=== PATIENT | female | born 1985 | race Caucasian/White ===

== ENCOUNTER 2016-07-03 08:31 | Emergency (ER) | payer BC, OTHER ==
--- NOTE | 2016-07-03 09:20 | EDDOCDS ---
Physician Documentation [facility] Name: Estefany Dobbins Age: 30 yrs Sex: Female : 1985 Arrival Date: 07/03/2016 Time: 08:31 Bed I2 / M2 Private MD: Disposition: 07/03/16 09:00 Discharged to Home/Self Care. Impression: Hidradenitis suppurativa - acute abscess right axilla. - Condition is Stable. - Discharge Instructions: Abscess, Hidradenitis Suppurativa, Heat Therapy. - Prescriptions for Keflex 500 mg Oral Capsule - take 1 capsule by ORAL route every 6 hours for 10 days; 40 capsule. - Medication Reconciliation, Local Pharmacy Hours form. - Follow up: Emergency Department; When: As needed; Reason: Fever > 102F, Worsening of conditions. Follow up: [facility]; When: 1 - 2 days; Reason: Recheck today's complaints. - Problem is an acute exacerbation. - Symptoms have improved. Historical: - Allergies: No known drug Allergies; - Home Meds: 1. metformin 500 mg Oral tab 1 tab 2 times per day (Last dose: 07/02/2016) 2. Vitamin Oral tab 1 tab once daily (Last dose: 07/02/2016) - PMHx: Polycystic Ovary Disease; - PSHx: pilonidal cyst removal; - Social history: Smoking status: Patient states was never smoker of tobacco. No barriers to communication noted, The patient speaks fluent Sami. - Family history: Not pertinent. - : The pt / caregiver states he / she is not on anticoagulants. Home medication list is obtained from the patient. - Exposure Risk Screening:: None identified. 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 6 in. (167.64 cm) (R); Pain 2/10; 09:13 BP 124 / 67; Pulse 102; Resp 18; Temp 97.1; Pulse Ox 99% ; Pain 2/10; jam1 08:35 Body Mass Index 29.05 (81.65 kg, 167.64 cm) [facility] MDM: 09:00 Wound Culture & GS - All Other Sources Ordered. EDMS 09:07 Dressing ordered. ar2 09:16 Financial registration complete. mm15 09:17 [facility] Payment Agreement was scanned into [employer] and attached to record. mm15 Signatures: Dispatcher [employer] EDAR Beatrice Howard RN RN Jazmin Madera RN RN dls Robertshaw, Aaron, KRISTYN PABernadine ar2 Odalys Jerez mm15 The chart was reviewed and I authenticate all verbal orders and agree with the evaluation and treatment provided.Attachments: 09:17 [facility] Payment Agreement mm15 MTDD
--- NOTE | 2016-07-03 09:21 | EDDOCDS ---
Nurse's Notes [facility] Name: Estefany Dobbins Age: 30 yrs Sex: Female : 1985 Arrival Date: 07/03/2016 Time: 08:31 Bed I2 / M2 Private MD: Diagnosis: Hidradenitis suppurativa-acute abscess right axilla Presentation: 07/03 08:38 Presenting complaint: Patient states: 6 weeks abscess rt axilla x 3 [facility] days,oozing since yesterday. Adult Sepsis Screening: The patient does not have new or worsening altered mentation. Patient's respiratory rate is less than 22. Systolic blood pressure is greater than 100. Patient has a qSOFA score of 0- Negative Sepsis Screen. Suicide/Homicide risk assessment- the patient denies having any suicidal and/or homicidal ideations and does not present with any other emotional, behavioral or mental health complaints. Status: Patient is not a in service coordinator or dependent. Transition of care: patient was not received from another setting of care. 08:38 Acuity: VENUS Level 3 [facility] 08:38 Method Of Arrival: Walkin/Carried/Asstd [facility] Triage Assessment: 08:41 General: Appears comfortable, well nourished, well groomed, Behavior is appropriate for [facility] age. Pain: Location: right axilla Pain currently is 2 out of 10 on a pain scale. Pt Declines HIV testing. Neurological: Level of Consciousness is awake, alert, Oriented to person, place, time. Respiratory: Airway is patent Respiratory effort is even, unlabored. Derm: Skin is pink, warm & dry. Reports abscess right axilla. EDGERMAN: 08:35 2, Full Term 1, Premature 0, 0, Living 1, LMP 05/17/2016, [facility] Verified, EDC 02/21/2017, Gestational age from LMP: 6 weeks 5 days Historical: - Allergies: No known drug Allergies; - Home Meds: 1. metformin 500 mg Oral tab 1 tab 2 times per day (Last dose: 07/02/2016) 2. Vitamin Oral tab 1 tab once daily (Last dose: 07/02/2016) - PMHx: Polycystic Ovary Disease; - PSHx: pilonidal cyst removal; - Social history: Smoking status: Patient states was never smoker of tobacco. No barriers to communication noted, The patient speaks fluent Chinese. - Family history: Not pertinent. - : The pt / caregiver states he / she is not on anticoagulants. Home medication list is obtained from the patient. - Exposure Risk Screening:: None identified. Screenin:49 Screening information is obtained from the patient. Primary language is Chinese. Fall jam1 risk: No risks identified. Assistance ADL's: requires no assistance with activities of daily living. Abuse/DV Screen: The patient / caregiver reports he/she is: not in a situation that causes fear, pain or injury. Nutritional screening: No deficits noted. Exposure Risk Screening: None identified. Advance Directives: Currently, there is no health care proxy. There is no active DNR order. There is no living will. There is no Power of Lens Blank Gauger. Advance directive information has not previously been placed in an [facility] medical record. Further advance directive information is declined. home support is adequate. Assessment: 09:16 General: Appears in no apparent distress, well developed, well nourished, well groomed, dls Behavior is cooperative. Awake, alert, oriented. Skin warm and dry. Moves all extremities. Bilateral breath sounds clear. Respirations unlabored. No apparent distress. The patient / caregiver is instructed regarding the plan of care and ED course. Red draining abscess right axilla.. Physical assessment to be completed by TACOS/BASSAM. Vital Signs: 08:35 BP 136 / 84; Pulse 104; Resp 18; Temp 96.7(O); Pulse Ox 100% on R/A; Weight 81.65 kg [facility] (R); Height 5 ft. 6 in. (167.64 cm) (R); Pain 2/10; 09:13 BP 124 / 67; Pulse 102; Resp 18; Temp 97.1; Pulse Ox 99% ; Pain 2/10; jam1 08:35 Body Mass Index 29.05 (81.65 kg, 167.64 cm) [facility] Vitals: 08:35 Log In Time: July 03, 2016 at 08:30. [facility] ED Course: 08:33 Patient visited by Odalys Jerez. mm15 08:33 Patient moved to Waiting mm15 08:39 Triage Initiated [facility] 08:43 Patient moved to / M2 [facility] 08:48 Mukesh Krishnamurthy PA-C is PHCP. ar2 08:48 Casper Jackson MD is Attending Physician. ar2 08:48 Patient visited by Mukesh Krishnamurthy PA-C. ar2 08:49 Pt greeted and oriented to ED. Patient advised of names of staff involved in care, jam1 location of call jurado, wait times and NPO status. Patient has correct armband on for positive identification. Bed in low position. Call light in reach. Side rails up X 1. Door closed. 08:59 [facility] is Referral Physician. ar2 09:17 [facility] Payment Agreement was scanned into [employer] and attached to record. mm15 09:18 No IV's were initiated during this patient's visit. No procedures done that require dls assistance. Order Results: There are currently no results for this order. Outcome: 09:00 Discharge ordered by Provider. ar2 09:17 The following High Risk Discharge criteria are identified: None. Discharged to home dls ambulatory. Condition: stable. Discharge instructions given to patient, Instructed on discharge instructions, follow up and referral plans. medication usage, Demonstrated understanding of instructions, medications, Pt was receptive of discharge instructions/ teaching. No special radiology studies were completed. 09:18 Discharge Assessment: Patient awake, alert and oriented x 3. No cognitive and/or dls functional deficits noted. Patient verbalized understanding of disposition instructions. patient administered narcotics - no. Property sent home with patient. 09:20 Patient left the ED. dls Signatures: Beatrice Howard, RN RN Jazmin Weaver RN RN dls Murphy, Jane, PARTY PLAN DEMONSTRATOR PARTY PLAN DEMONSTRATOR jam1 Mukesh Krishnamurthy PA-C PA-C ar2 Odalys Jerez mm15 MTDD
--- NOTE | 2016-07-05 10:21 | EDDOCDS ---
Physician Documentation [facility] Name: Estefany Dobbins Age: 30 yrs Sex: Female : 1985 Arrival Date: 07/03/2016 Time: 08:31 Bed I2 / M2 Private MD: Disposition: 07/03/16 09:00 Discharged to Home/Self Care. Impression: Hidradenitis suppurativa - acute abscess right axilla. - Condition is Stable. - Discharge Instructions: Abscess, Hidradenitis Suppurativa, Heat Therapy. - Prescriptions for Keflex 500 mg Oral Capsule - take 1 capsule by ORAL route every 6 hours for 10 days; 40 capsule. - Medication Reconciliation, Local Pharmacy Hours form. - Follow up: Emergency Department; When: As needed; Reason: Fever > 102F, Worsening of conditions. Follow up: [facility]; When: 1 - 2 days; Reason: Recheck today's complaints. - Problem is an acute exacerbation. - Symptoms have improved. Historical: - Allergies: No known drug Allergies; - Home Meds: 1. metformin 500 mg Oral tab 1 tab 2 times per day (Last dose: 07/02/2016) 2. Vitamin Oral tab 1 tab once daily (Last dose: 07/02/2016) - PMHx: Polycystic Ovary Disease; - PSHx: pilonidal cyst removal; - Social history: Smoking status: Patient states was never smoker of tobacco. No barriers to communication noted, The patient speaks fluent Yoruba. - Family history: Not pertinent. - : The pt / caregiver states he / she is not on anticoagulants. Home medication list is obtained from the patient. - Exposure Risk Screening:: None identified. 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 6 in. (167.64 cm) (R); Pain 2/10; 09:13 BP 124 / 67; Pulse 102; Resp 18; Temp 97.1; Pulse Ox 99% ; Pain 2/10; jam1 08:35 Body Mass Index 29.05 (81.65 kg, 167.64 cm) [facility] MDM: 09:00 Wound Culture & GS - All Other Sources Ordered. EDMS 09:07 Dressing ordered. ar2 09:16 Financial registration complete. mm15 09:17 [facility] Payment Agreement was scanned into [email or web address] and attached to record. mm15 Signatures: Dispatcher [employer] EDNM Beatrice Howard RN RN [facility] Jazmin Valencia RN RN dls Robertshaw, Aaron, KRISTYN PABernadine ar2 Odalys Jerez mm15 The chart was reviewed and I authenticate all verbal orders and agree with the evaluation and treatment provided.Attachments: 09:17 [facility] Payment Agreement mm15 Chart Complete MTDD
--- NOTE | 2016-07-05 10:21 | EDDOCDS ---
Nurse's Notes [facility] Name: Estefany Dobbins Age: 30 yrs Sex: Female : 1985 Arrival Date: 07/03/2016 Time: 08:31 Bed I2 / M2 Private MD: Diagnosis: Hidradenitis suppurativa-acute abscess right axilla Presentation: 07/03 08:38 Presenting complaint: Patient states: 6 weeks abscess rt axilla x 3 [facility] days,oozing since yesterday. Adult Sepsis Screening: The patient does not have new or worsening altered mentation. Patient's respiratory rate is less than 22. Systolic blood pressure is greater than 100. Patient has a qSOFA score of 0- Negative Sepsis Screen. Suicide/Homicide risk assessment- the patient denies having any suicidal and/or homicidal ideations and does not present with any other emotional, behavioral or mental health complaints. Status: Patient is not a patient services specialist or dependent. Transition of care: patient was not received from another setting of care. 08:38 Acuity: VENUS Level 3 [facility] 08:38 Method Of Arrival: Walkin/Carried/Asstd [facility] Triage Assessment: 08:41 General: Appears comfortable, well nourished, well groomed, Behavior is appropriate for [facility] age. Pain: Location: right axilla Pain currently is 2 out of 10 on a pain scale. Pt Declines HIV testing. Neurological: Level of Consciousness is awake, alert, Oriented to person, place, time. Respiratory: Airway is patent Respiratory effort is even, unlabored. Derm: Skin is pink, warm & dry. Reports abscess right axilla. 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 metformin 500 mg Oral tab 1 tab 2 times per day (Last dose: 07/02/2016) 2. Vitamin Oral tab 1 tab once daily (Last dose: 07/02/2016) - PMHx: Polycystic Ovary Disease; - PSHx: pilonidal cyst removal; - Social history: Smoking status: Patient states was never smoker of tobacco. No barriers to communication noted, The patient speaks fluent Albanian. - Family history: Not pertinent. - : The pt / caregiver states he / she is not on anticoagulants. Home medication list is obtained from the patient. - Exposure Risk Screening:: None identified. Screenin:49 Screening information is obtained from the patient. Primary language is Albanian. Fall jam1 risk: No risks identified. Assistance ADL's: requires no assistance with activities of daily living. Abuse/DV Screen: The patient / caregiver reports he/she is: not in a situation that causes fear, pain or injury. Nutritional screening: No deficits noted. Exposure Risk Screening: None identified. Advance Directives: Currently, there is no health care proxy. There is no active DNR order. There is no living will. There is no Power of Reconnaissance Crewmember. Advance directive information has not previously been placed in an [facility] medical record. Further advance directive information is declined. home support is adequate. Assessment: 09:16 General: Appears in no apparent distress, well developed, well nourished, well groomed, dls Behavior is cooperative. Awake, alert, oriented. Skin warm and dry. Moves all extremities. Bilateral breath sounds clear. Respirations unlabored. No apparent distress. The patient / caregiver is instructed regarding the plan of care and ED course. Red draining abscess right axilla.. Physical assessment to be completed by TACOS/BASSAM. Vital Signs: 08:35 BP 136 / 84; Pulse 104; Resp 18; Temp 96.7(O); Pulse Ox 100% on R/A; Weight 81.65 kg [facility] (R); Height 5 ft. 6 in. (167.64 cm) (R); Pain 2/10; 09:13 BP 124 / 67; Pulse 102; Resp 18; Temp 97.1; Pulse Ox 99% ; Pain 2/10; jam1 08:35 Body Mass Index 29.05 (81.65 kg, 167.64 cm) [facility] Vitals: 08:35 Log In Time: July 03, 2016 at 08:30. [facility] ED Course: 08:33 Patient visited by Odalys Jerez. mm15 08:33 Patient moved to Waiting mm15 08:39 Triage Initiated [facility] 08:43 Patient moved to / M2 [facility] 08:48 Mukesh Krishnamurthy PA-C is PHCP. ar2 08:48 Casper Jackson MD is Attending Physician. ar2 08:48 Patient visited by Mukesh Krishnamurthy PA-C. ar2 08:49 Pt greeted and oriented to ED. Patient advised of names of staff involved in care, jam1 location of call jur[place], wait times and NPO status. Patient has correct armband on for positive identification. Bed in low position. Call light in reach. Side rails up X 1. Door closed. 08:59 [facility] is Referral Physician. ar2 09:17 [facility] Payment Agreement was scanned into [employer] and attached to record. mm15 09:18 No IV's were initiated during this patient's visit. No procedures done that require dls assistance. 09:29 Patient name changed from Estefany\S\\S\Dobbins\S\ to Estefany\S\ \S\Dobbins. EDMS Order Results: Lab Order: Wound Culture & GS - All Other Sources; SPEC'M 07/03/16 09:39 Test: GRAM STAIN; Value: GRAM STAIN RESULT; Status: F Test: GRAM STAIN; Value: FEW EPITHELIAL CELLS; Status: F Test: GRAM STAIN; Value: FEW RBCS; Status: F Test: GRAM STAIN; Value: NO ORGANISMS SEEN; Status: F Test: WOUND CULTURE; Value: <EXTERNAL COMMENT eCWMed> FULL REPORT IN LAB NOTES (eCW and Medent).; Status: F Test: WOUND CULTURE; Value: ORGANISM 1: STAPHYLOCOCCUS SP COAG NEG; Status: F Test: WOUND CULTURE; Value: STAPHYLOCOCCUS SP COAG NEG; Status: F Test: WOUND CULTURE; Value: QUANTITY OF GROWTH FEW; Status: F Test: WOUND CULTURE; Value: GRAM POS SENSI - VITEK 67; Status: F Test: WOUND CULTURE; Value: Method: VIT2; Status: F Test: WOUND CULTURE; Value: TETRACYCLINE >=16 R; Status: F Test: WOUND CULTURE; Value: PENICILLIN G <=0.03 R; Status: F Test: WOUND CULTURE; Value: TRIMETHOPRIM/SULFAMETHOXAZOLE <=10 S; Status: F Test: WOUND CULTURE; Value: ERYTHROMYCIN >=8 R; Status: F Test: WOUND CULTURE; Value: GENTAMICIN <=0.5 S; Status: F Test: WOUND CULTURE; Value: CLINDAMYCIN <=0.25 S; Status: F Test: WOUND CULTURE; Value: OXACILLIN <=0.25 S; Status: F Test: WOUND CULTURE; Value: VANCOMYCIN 1 S; Status: F Test: WOUND CULTURE; Value: LINEZOLID (ZYVOX) 1 S; Status: F Outcome: 09:00 Discharge ordered by Provider. ar2 09:17 The following High Risk Discharge criteria are identified: None. Discharged to home dls ambulatory. Condition: stable. Discharge instructions given to patient, Instructed on discharge instructions, follow up and referral plans. medication usage, Demonstrated understanding of instructions, medications, Pt was receptive of discharge instructions/ teaching. No special radiology studies were completed. 09:18 Discharge Assessment: Patient awake, alert and oriented x 3. No cognitive and/or dls functional deficits noted. Patient verbalized understanding of disposition instructions. patient administered narcotics - no. Property sent home with patient. 09:20 Patient left the ED. dls Signatures: Dispatcher [employer] EDMS Beatrice Howard RN RN kpj Scott, Debra, RN RN dls Murphy, Jane, BRAND MGR BRAND MGR jam1 Mukesh Krishnamurthy PA-C PA-C ar2 Odalys Jerez mm15 Chart Complete MTDManda
--- NOTE | 2016-07-05 10:21 | EDDOCDS ---
Physician Documentation [facility] Name: Estefany Dobbins Age: 30 yrs Sex: Female : 1985 Arrival Date: 07/03/2016 Time: 08:31 Bed I2 / M2 Private MD: Disposition: 07/03/16 09:00 Discharged to Home/Self Care. Impression: Hidradenitis suppurativa - acute abscess right axilla. - Condition is Stable. - Discharge Instructions: Abscess, Hidradenitis Suppurativa, Heat Therapy. - Prescriptions for Keflex 500 mg Oral Capsule - take 1 capsule by ORAL route every 6 hours for 10 days; 40 capsule. - Medication Reconciliation, Local Pharmacy Hours form. - Follow up: Emergency Department; When: As needed; Reason: Fever > 102F, Worsening of conditions. Follow up: [facility]; When: 1 - 2 days; Reason: Recheck today's complaints. - Problem is an acute exacerbation. - Symptoms have improved. Historical: - Allergies: No known drug Allergies; - Home Meds: 1. metformin 500 mg Oral tab 1 tab 2 times per day (Last dose: 07/02/2016) 2. Vitamin Oral tab 1 tab once daily (Last dose: 07/02/2016) - PMHx: Polycystic Ovary Disease; - PSHx: pilonidal cyst removal; - Social history: Smoking status: Patient states was never smoker of tobacco. No barriers to communication noted, The patient speaks fluent Hungarian. - Family history: Not pertinent. - : The pt / caregiver states he / she is not on anticoagulants. Home medication list is obtained from the patient. - Exposure Risk Screening:: None identified. 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 6 in. (167.64 cm) (R); Pain 2/10; 09:13 BP 124 / 67; Pulse 102; Resp 18; Temp 97.1; Pulse Ox 99% ; Pain 2/10; jam1 08:35 Body Mass Index 29.05 (81.65 kg, 167.64 cm) [facility] MDM: 09:00 Wound Culture & GS - All Other Sources Ordered. EDMS 09:07 Dressing ordered. ar2 09:16 Financial registration complete. mm15 09:17 [facility] Payment Agreement was scanned into [employer] and attached to record. mm15 Signatures: Dispatcher [employer] EDWY Beatrice Howard RN RN [facility] Jazmin Valencia RN RN dls Robertshaw, Aaron, KRISTYN PABernadine ar2 Odalys Jerez mm15 The chart was reviewed and I authenticate all verbal orders and agree with the evaluation and treatment provided.Attachments: 09:17 [facility] Payment Agreement mm15 Chart Complete MTDD
--- NOTE | 2016-07-06 10:19 | EDDOCDS ---
Nurse's Notes [facility] Name: Estefany Dobbins Age: 30 yrs Sex: Female : 1985 Arrival Date: 07/03/2016 Time: 08:31 Bed I2 / M2 Private MD: Diagnosis: Hidradenitis suppurativa-acute abscess right axilla Presentation: 07/03 08:38 Presenting complaint: Patient states: 6 weeks abscess rt axilla x 3 [facility] days,oozing since yesterday. Adult Sepsis Screening: The patient does not have new or worsening altered mentation. Patient's respiratory rate is less than 22. Systolic blood pressure is greater than 100. Patient has a qSOFA score of 0- Negative Sepsis Screen. Suicide/Homicide risk assessment- the patient denies having any suicidal and/or homicidal ideations and does not present with any other emotional, behavioral or mental health complaints. Status: Patient is not a associate field service engineer or dependent. Transition of care: patient was not received from another setting of care. 08:38 Acuity: VENUS Level 3 [facility] 08:38 Method Of Arrival: Walkin/Carried/Asstd [facility] Triage Assessment: 08:41 General: Appears comfortable, well nourished, well groomed, Behavior is appropriate for [facility] age. Pain: Location: right axilla Pain currently is 2 out of 10 on a pain scale. Pt Declines HIV testing. Neurological: Level of Consciousness is awake, alert, Oriented to person, place, time. Respiratory: Airway is patent Respiratory effort is even, unlabored. Derm: Skin is pink, warm & dry. Reports abscess right axilla. STRIPE MARKER: 08:35 2, Full Term 1, Premature 0, 0, Living 1, LMP 05/17/2016, [facility] Verified, EDC 02/21/2017, Gestational age from LMP: 6 weeks 5 days Historical: - Allergies: No known drug Allergies; - Home Meds: 1. metformin 500 mg Oral tab 1 tab 2 times per day (Last dose: 07/02/2016) 2. Vitamin Oral tab 1 tab once daily (Last dose: 07/02/2016) - PMHx: Polycystic Ovary Disease; - PSHx: pilonidal cyst removal; - Social history: Smoking status: Patient states was never smoker of tobacco. No barriers to communication noted, The patient speaks fluent Kazakh. - Family history: Not pertinent. - : The pt / caregiver states he / she is not on anticoagulants. Home medication list is obtained from the patient. - Exposure Risk Screening:: None identified. Screenin:49 Screening information is obtained from the patient. Primary language is Kazakh. Fall jam1 risk: No risks identified. Assistance ADL's: requires no assistance with activities of daily living. Abuse/DV Screen: The patient / caregiver reports he/she is: not in a situation that causes fear, pain or injury. Nutritional screening: No deficits noted. Exposure Risk Screening: None identified. Advance Directives: Currently, there is no health care proxy. There is no active DNR order. There is no living will. There is no Power of Lace Pinner. Advance directive information has not previously been placed in an [facility] medical record. Further advance directive information is declined. home support is adequate. Assessment: 09:16 General: Appears in no apparent distress, well developed, well nourished, well groomed, dls Behavior is cooperative. Awake, alert, oriented. Skin warm and dry. Moves all extremities. Bilateral breath sounds clear. Respirations unlabored. No apparent distress. The patient / caregiver is instructed regarding the plan of care and ED course. Red draining abscess right axilla.. Physical assessment to be completed by TACOS/BASSAM. Vital Signs: 08:35 BP 136 / 84; Pulse 104; Resp 18; Temp 96.7(O); Pulse Ox 100% on R/A; Weight 81.65 kg [facility] (R); Height 5 ft. 6 in. (167.64 cm) (R); Pain 2/10; 09:13 BP 124 / 67; Pulse 102; Resp 18; Temp 97.1; Pulse Ox 99% ; Pain 2/10; jam1 08:35 Body Mass Index 29.05 (81.65 kg, 167.64 cm) [facility] Vitals: 08:35 Log In Time: July 03, 2016 at 08:30. [facility] ED Course: 08:33 Patient visited by Odalys Jerez. mm15 08:33 Patient moved to Waiting mm15 08:39 Triage Initiated [facility] 08:43 Patient moved to / M2 [facility] 08:48 Mukesh Krishnamurthy PA-C is PHCP. ar2 08:48 Casper Jackson MD is Attending Physician. ar2 08:48 Patient visited by Mukesh Krishnamurthy PA-C. ar2 08:49 Pt greeted and oriented to ED. Patient advised of names of staff involved in care, jam1 location of call jur[place], wait times and NPO status. Patient has correct armband on for positive identification. Bed in low position. Call light in reach. Side rails up X 1. Door closed. 08:59 [facility] is Referral Physician. ar2 09:17 [facility] Payment Agreement was scanned into [employer] and attached to record. mm15 09:18 No IV's were initiated during this patient's visit. No procedures done that require dls assistance. 09:29 Patient name changed from Estefany\S\\S\Dobbins\S\ to Estefany\S\ \S\Dobbins. EDMS Order Results: Lab Order: Wound Culture & GS - All Other Sources; SPEC'M 07/03/16 09:39 Test: GRAM STAIN; Value: GRAM STAIN RESULT; Status: F Test: GRAM STAIN; Value: FEW EPITHELIAL CELLS; Status: F Test: GRAM STAIN; Value: FEW RBCS; Status: F Test: GRAM STAIN; Value: NO ORGANISMS SEEN; Status: F Test: WOUND CULTURE; Value: <EXTERNAL COMMENT eCWMed> FULL REPORT IN LAB NOTES (eCW and Medent).; Status: F Test: WOUND CULTURE; Value: ORGANISM 1: STAPHYLOCOCCUS SP COAG NEG; Status: F Test: WOUND CULTURE; Value: STAPHYLOCOCCUS SP COAG NEG; Status: F Test: WOUND CULTURE; Value: QUANTITY OF GROWTH FEW; Status: F Test: WOUND CULTURE; Value: GRAM POS SENSI - VITEK 67; Status: F Test: WOUND CULTURE; Value: Method: VIT2; Status: F Test: WOUND CULTURE; Value: TETRACYCLINE >=16 R; Status: F Test: WOUND CULTURE; Value: PENICILLIN G <=0.03 R; Status: F Test: WOUND CULTURE; Value: TRIMETHOPRIM/SULFAMETHOXAZOLE <=10 S; Status: F Test: WOUND CULTURE; Value: ERYTHROMYCIN >=8 R; Status: F Test: WOUND CULTURE; Value: GENTAMICIN <=0.5 S; Status: F Test: WOUND CULTURE; Value: CLINDAMYCIN <=0.25 S; Status: F Test: WOUND CULTURE; Value: OXACILLIN <=0.25 S; Status: F Test: WOUND CULTURE; Value: VANCOMYCIN 1 S; Status: F Test: WOUND CULTURE; Value: LINEZOLID (ZYVOX) 1 S; Status: F Outcome: 09:00 Discharge ordered by Provider. ar2 09:17 The following High Risk Discharge criteria are identified: None. Discharged to home dls ambulatory. Condition: stable. Discharge instructions given to patient, Instructed on discharge instructions, follow up and referral plans. medication usage, Demonstrated understanding of instructions, medications, Pt was receptive of discharge instructions/ teaching. No special radiology studies were completed. 09:18 Discharge Assessment: Patient awake, alert and oriented x 3. No cognitive and/or dls functional deficits noted. Patient verbalized understanding of disposition instructions. patient administered narcotics - no. Property sent home with patient. 09:20 Patient left the ED. dls Addendum: 07/06/2016 10:17 Narrative: Wound culture results reviewed with Dr. Knox and report to be faxed to [facility] PCP. Signatures: Dispatcher [employer] Carisa Thomas, RN RN [facility] Beatrice Howard RN RN Jazmin Weaver RN RN dls Chanda Chaney, FACILITIES FLIGHT CHECK PILOT FACILITIES FLIGHT CHECK PILOT jam1 Mukesh Krishnamurthy PA-C PA-C ar2 Odalys Jerez mm15 MTDD
--- NOTE | 2016-07-06 10:19 | EDDOCDS ---
Physician Documentation [facility] Name: Estefany Dobbins Age: 30 yrs Sex: Female : 1985 Arrival Date: 07/03/2016 Time: 08:31 Bed I2 / M2 Private MD: Disposition: 07/03/16 09:00 Discharged to Home/Self Care. Impression: Hidradenitis suppurativa - acute abscess right axilla. - Condition is Stable. - Discharge Instructions: Abscess, Hidradenitis Suppurativa, Heat Therapy. - Prescriptions for Keflex 500 mg Oral Capsule - take 1 capsule by ORAL route every 6 hours for 10 days; 40 capsule. - Medication Reconciliation, Local Pharmacy Hours form. - Follow up: Emergency Department; When: As needed; Reason: Fever > 102F, Worsening of conditions. Follow up: [facility]; When: 1 - 2 days; Reason: Recheck today's complaints. - Problem is an acute exacerbation. - Symptoms have improved. Historical: - Allergies: No known drug Allergies; - Home Meds: 1. metformin 500 mg Oral tab 1 tab 2 times per day (Last dose: 07/02/2016) 2. Vitamin Oral tab 1 tab once daily (Last dose: 07/02/2016) - PMHx: Polycystic Ovary Disease; - PSHx: pilonidal cyst removal; - Social history: Smoking status: Patient states was never smoker of tobacco. No barriers to communication noted, The patient speaks fluent Polish. - Family history: Not pertinent. - : The pt / caregiver states he / she is not on anticoagulants. Home medication list is obtained from the patient. - Exposure Risk Screening:: None identified. COOK SHORT ORDER: 07/03 08:35 2, Full Term 1, Premature 0, 0, Living 1, LMP 05/17/2016, [facility]pj Verified, EDC 02/21/2017, Gestational age from LMP: 6 weeks 5 days Vital Signs: 08:35 BP 136 / 84; Pulse 104; Resp 18; Temp 96.7(O); Pulse Ox 100% on R/A; Weight 81.65 kg / kpj 180.01 lbs (R); Height 5 ft. 6 in. (167.64 cm) (R); Pain 2/10; 09:13 BP 124 / 67; Pulse 102; Resp 18; Temp 97.1; Pulse Ox 99% ; Pain 2/10; jam1 08:35 Body Mass Index 29.05 (81.65 kg, 167.64 cm) [facility] MDM: 09:00 Wound Culture & GS - All Other Sources Ordered. EDMS 09:07 Dressing ordered. ar2 09:16 Financial registration complete. mm15 09:17 [facility] Payment Agreement was scanned into [employer] and attached to record. mm15 Signatures: Dispatcher [employer] EDMD Beatrice Howard RN RN Jazmin Madera RN RN dls Robertshaw, Aaron, KRISTYN PABernadine ar2 Odalys Jerez mm15 The chart was reviewed and I authenticate all verbal orders and agree with the evaluation and treatment provided.Attachments: 09:17 [facility] Payment Agreement mm15 MTDD
--- NOTE | 2016-07-06 10:19 | EDDOCDS ---
Physician Documentation [facility] Name: Estefany Dobbins Age: 30 yrs Sex: Female : 1985 Arrival Date: 07/03/2016 Time: 08:31 Bed I2 / M2 Private MD: Disposition: 07/03/16 09:00 Discharged to Home/Self Care. Impression: Hidradenitis suppurativa - acute abscess right axilla. - Condition is Stable. - Discharge Instructions: Abscess, Hidradenitis Suppurativa, Heat Therapy. - Prescriptions for Keflex 500 mg Oral Capsule - take 1 capsule by ORAL route every 6 hours for 10 days; 40 capsule. - Medication Reconciliation, Local Pharmacy Hours form. - Follow up: Emergency Department; When: As needed; Reason: Fever > 102F, Worsening of conditions. Follow up: [facility]; When: 1 - 2 days; Reason: Recheck today's complaints. - Problem is an acute exacerbation. - Symptoms have improved. Historical: - Allergies: No known drug Allergies; - Home Meds: 1. metformin 500 mg Oral tab 1 tab 2 times per day (Last dose: 07/02/2016) 2. Vitamin Oral tab 1 tab once daily (Last dose: 07/02/2016) - PMHx: Polycystic Ovary Disease; - PSHx: pilonidal cyst removal; - Social history: Smoking status: Patient states was never smoker of tobacco. No barriers to communication noted, The patient speaks fluent Serbian. - Family history: Not pertinent. - : The pt / caregiver states he / she is not on anticoagulants. Home medication list is obtained from the patient. - Exposure Risk Screening:: None identified. DIRECTOR INVESTOR RELATIONS: 07/03 08:35 2, Full Term 1, Premature 0, 0, Living 1, LMP 05/17/2016, [facility]pj Verified, EDC 02/21/2017, Gestational age from LMP: 6 weeks 5 days Vital Signs: 08:35 BP 136 / 84; Pulse 104; Resp 18; Temp 96.7(O); Pulse Ox 100% on R/A; Weight 81.65 kg / kpj 180.01 lbs (R); Height 5 ft. 6 in. (167.64 cm) (R); Pain 2/10; 09:13 BP 124 / 67; Pulse 102; Resp 18; Temp 97.1; Pulse Ox 99% ; Pain 2/10; jam1 08:35 Body Mass Index 29.05 (81.65 kg, 167.64 cm) [facility] MDM: 09:00 Wound Culture & GS - All Other Sources Ordered. EDMS 09:07 Dressing ordered. ar2 09:16 Financial registration complete. mm15 09:17 [facility] Payment Agreement was scanned into [employer] and attached to record. mm15 Signatures: Dispatcher [employer] EDMT Beatrice Howard RN RN Jazmin Madera RN RN dls Robertshaw, Aaron, KRISTYN PABernadine ar2 Odalys Jerez mm15 The chart was reviewed and I authenticate all verbal orders and agree with the evaluation and treatment provided.Attachments: 09:17 [facility] Payment Agreement mm15 MTDD
--- NOTE | 2016-07-06 10:21 | EDDOCDS ---
Physician Documentation [facility] Name: Estefany Dobbins Age: 30 yrs Sex: Female : 1985 Arrival Date: 07/03/2016 Time: 08:31 Bed I2 / M2 Private MD: Disposition: 07/03/16 09:00 Discharged to Home/Self Care. Impression: Hidradenitis suppurativa - acute abscess right axilla. - Condition is Stable. - Discharge Instructions: Abscess, Hidradenitis Suppurativa, Heat Therapy. - Prescriptions for Keflex 500 mg Oral Capsule - take 1 capsule by ORAL route every 6 hours for 10 days; 40 capsule. - Medication Reconciliation, Local Pharmacy Hours form. - Follow up: Emergency Department; When: As needed; Reason: Fever > 102F, Worsening of conditions. Follow up: [facility]; When: 1 - 2 days; Reason: Recheck today's complaints. - Problem is an acute exacerbation. - Symptoms have improved. Historical: - Allergies: No known drug Allergies; - Home Meds: 1. metformin 500 mg Oral tab 1 tab 2 times per day (Last dose: 07/02/2016) 2. Vitamin Oral tab 1 tab once daily (Last dose: 07/02/2016) - PMHx: Polycystic Ovary Disease; - PSHx: pilonidal cyst removal; - Social history: Smoking status: Patient states was never smoker of tobacco. No barriers to communication noted, The patient speaks fluent Albanian. - Family history: Not pertinent. - : The pt / caregiver states he / she is not on anticoagulants. Home medication list is obtained from the patient. - Exposure Risk Screening:: None identified. 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 6 in. (167.64 cm) (R); Pain 2/10; 09:13 BP 124 / 67; Pulse 102; Resp 18; Temp 97.1; Pulse Ox 99% ; Pain 2/10; jam1 08:35 Body Mass Index 29.05 (81.65 kg, 167.64 cm) [facility] MDM: 09:00 Wound Culture & GS - All Other Sources Ordered. EDMS 09:07 Dressing ordered. ar2 09:16 Financial registration complete. mm15 09:17 [facility] Payment Agreement was scanned into [employer] and attached to record. mm15 Signatures: Dispatcher [employer] EDMD Beatrice Howard RN RN [facility] Jazmin Valencia RN RN dls Robertshaw, Aaron, KRISTYN PABernadine ar2 Odalys Jerez mm15 The chart was reviewed and I authenticate all verbal orders and agree with the evaluation and treatment provided.Attachments: 09:17 [facility] Payment Agreement mm15 Chart Complete MTDD
--- NOTE | 2016-07-06 10:21 | EDDOCDS ---
Nurse's Notes [facility] Name: Estefany Dobbins Age: 30 yrs Sex: Female : 1985 Arrival Date: 07/03/2016 Time: 08:31 Bed I2 / M2 Private MD: Diagnosis: Hidradenitis suppurativa-acute abscess right axilla Presentation: 07/03 08:38 Presenting complaint: Patient states: 6 weeks abscess rt axilla x 3 [facility] days,oozing since yesterday. Adult Sepsis Screening: The patient does not have new or worsening altered mentation. Patient's respiratory rate is less than 22. Systolic blood pressure is greater than 100. Patient has a qSOFA score of 0- Negative Sepsis Screen. Suicide/Homicide risk assessment- the patient denies having any suicidal and/or homicidal ideations and does not present with any other emotional, behavioral or mental health complaints. Status: Patient is not a retail customer service specialist or dependent. Transition of care: patient was not received from another setting of care. 08:38 Acuity: VENUS Level 3 [facility] 08:38 Method Of Arrival: Walkin/Carried/Asstd [facility] Triage Assessment: 08:41 General: Appears comfortable, well nourished, well groomed, Behavior is appropriate for [facility] age. Pain: Location: right axilla Pain currently is 2 out of 10 on a pain scale. Pt Declines HIV testing. Neurological: Level of Consciousness is awake, alert, Oriented to person, place, time. Respiratory: Airway is patent Respiratory effort is even, unlabored. Derm: Skin is pink, warm & dry. Reports abscess right axilla. 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 metformin 500 mg Oral tab 1 tab 2 times per day (Last dose: 07/02/2016) 2. Vitamin Oral tab 1 tab once daily (Last dose: 07/02/2016) - PMHx: Polycystic Ovary Disease; - PSHx: pilonidal cyst removal; - Social history: Smoking status: Patient states was never smoker of tobacco. No barriers to communication noted, The patient speaks fluent Upper Sorbian. - Family history: Not pertinent. - : The pt / caregiver states he / she is not on anticoagulants. Home medication list is obtained from the patient. - Exposure Risk Screening:: None identified. Screenin:49 Screening information is obtained from the patient. Primary language is Upper Sorbian. Fall jam1 risk: No risks identified. Assistance ADL's: requires no assistance with activities of daily living. Abuse/DV Screen: The patient / caregiver reports he/she is: not in a situation that causes fear, pain or injury. Nutritional screening: No deficits noted. Exposure Risk Screening: None identified. Advance Directives: Currently, there is no health care proxy. There is no active DNR order. There is no living will. There is no Power of Film Processing Shift Supervisor. Advance directive information has not previously been placed in an [facility] medical record. Further advance directive information is declined. home support is adequate. Assessment: 09:16 General: Appears in no apparent distress, well developed, well nourished, well groomed, dls Behavior is cooperative. Awake, alert, oriented. Skin warm and dry. Moves all extremities. Bilateral breath sounds clear. Respirations unlabored. No apparent distress. The patient / caregiver is instructed regarding the plan of care and ED course. Red draining abscess right axilla.. Physical assessment to be completed by TACOS/BASSAM. Vital Signs: 08:35 BP 136 / 84; Pulse 104; Resp 18; Temp 96.7(O); Pulse Ox 100% on R/A; Weight 81.65 kg [facility] (R); Height 5 ft. 6 in. (167.64 cm) (R); Pain 2/10; 09:13 BP 124 / 67; Pulse 102; Resp 18; Temp 97.1; Pulse Ox 99% ; Pain 2/10; jam1 08:35 Body Mass Index 29.05 (81.65 kg, 167.64 cm) [facility] Vitals: 08:35 Log In Time: July 03, 2016 at 08:30. [facility] ED Course: 08:33 Patient visited by Odalys Jerez. mm15 08:33 Patient moved to Waiting mm15 08:39 Triage Initiated [facility] 08:43 Patient moved to / M2 [facility] 08:48 Mukesh Krishnamurthy PA-C is PHCP. ar2 08:48 Capser Jackson MD is Attending Physician. ar2 08:48 Patient visited by Mukesh Krishnamurthy PA-C. ar2 08:49 Pt greeted and oriented to ED. Patient advised of names of staff involved in care, jam1 location of call jur[place], wait times and NPO status. Patient has correct armband on for positive identification. Bed in low position. Call light in reach. Side rails up X 1. Door closed. 08:59 [facility] is Referral Physician. ar2 09:17 [facility] Payment Agreement was scanned into [employer] and attached to record. mm15 09:18 No IV's were initiated during this patient's visit. No procedures done that require dls assistance. 09:29 Patient name changed from Estefany\S\\S\Dobbins\S\ to Estefany\S\ \S\Dobbins. EDMS Order Results: Lab Order: Wound Culture & GS - All Other Sources; SPEC'M 07/03/16 09:39 Test: GRAM STAIN; Value: GRAM STAIN RESULT; Status: F Test: GRAM STAIN; Value: FEW EPITHELIAL CELLS; Status: F Test: GRAM STAIN; Value: FEW RBCS; Status: F Test: GRAM STAIN; Value: NO ORGANISMS SEEN; Status: F Test: WOUND CULTURE; Value: <EXTERNAL COMMENT eCWMed> FULL REPORT IN LAB NOTES (eCW and Medent).; Status: F Test: WOUND CULTURE; Value: ORGANISM 1: STAPHYLOCOCCUS SP COAG NEG; Status: F Test: WOUND CULTURE; Value: STAPHYLOCOCCUS SP COAG NEG; Status: F Test: WOUND CULTURE; Value: QUANTITY OF GROWTH FEW; Status: F Test: WOUND CULTURE; Value: GRAM POS SENSI - VITEK 67; Status: F Test: WOUND CULTURE; Value: Method: VIT2; Status: F Test: WOUND CULTURE; Value: TETRACYCLINE >=16 R; Status: F Test: WOUND CULTURE; Value: PENICILLIN G <=0.03 R; Status: F Test: WOUND CULTURE; Value: TRIMETHOPRIM/SULFAMETHOXAZOLE <=10 S; Status: F Test: WOUND CULTURE; Value: ERYTHROMYCIN >=8 R; Status: F Test: WOUND CULTURE; Value: GENTAMICIN <=0.5 S; Status: F Test: WOUND CULTURE; Value: CLINDAMYCIN <=0.25 S; Status: F Test: WOUND CULTURE; Value: OXACILLIN <=0.25 S; Status: F Test: WOUND CULTURE; Value: VANCOMYCIN 1 S; Status: F Test: WOUND CULTURE; Value: LINEZOLID (ZYVOX) 1 S; Status: F Outcome: 09:00 Discharge ordered by Provider. ar2 09:17 The following High Risk Discharge criteria are identified: None. Discharged to home dls ambulatory. Condition: stable. Discharge instructions given to patient, Instructed on discharge instructions, follow up and referral plans. medication usage, Demonstrated understanding of instructions, medications, Pt was receptive of discharge instructions/ teaching. No special radiology studies were completed. 09:18 Discharge Assessment: Patient awake, alert and oriented x 3. No cognitive and/or dls functional deficits noted. Patient verbalized understanding of disposition instructions. patient administered narcotics - no. Property sent home with patient. 09:20 Patient left the ED. dls Addendum: 07/06/2016 10:17 Narrative: Wound culture results reviewed with Dr. Knox and report to be faxed to [facility] PCP. Signatures: Dispatcher [employer] Carisa Thomas, RN RN [facility] Beatrice Howard RN RN Jazmin Weaver RN RN dls Chanda Chaney, CALL BOX WIRER CALL BOX WIRER jam1 Mukesh Krishnamurthy PA-C PA-C ar2 Odalys Jerez mm15 Chart Complete MTDD
--- NOTE | 2016-07-06 10:21 | EDDOCDS ---
Physician Documentation [facility] Name: Estefany Dobbins Age: 30 yrs Sex: Female : 1985 Arrival Date: 07/03/2016 Time: 08:31 Bed I2 / M2 Private MD: Disposition: 07/03/16 09:00 Discharged to Home/Self Care. Impression: Hidradenitis suppurativa - acute abscess right axilla. - Condition is Stable. - Discharge Instructions: Abscess, Hidradenitis Suppurativa, Heat Therapy. - Prescriptions for Keflex 500 mg Oral Capsule - take 1 capsule by ORAL route every 6 hours for 10 days; 40 capsule. - Medication Reconciliation, Local Pharmacy Hours form. - Follow up: Emergency Department; When: As needed; Reason: Fever > 102F, Worsening of conditions. [facility]; When: 1 - 2 days; Reason: Recheck today's complaints. - Problem is an acute exacerbation. - Symptoms have improved. Historical: - Allergies: No known drug Allergies; - Home Meds: 1. metformin 500 mg Oral tab 1 tab 2 times per day (Last dose: 07/02/2016) 2. Vitamin Oral tab 1 tab once daily (Last dose: 07/02/2016) - PMHx: Polycystic Ovary Disease; - PSHx: pilonidal cyst removal; - Social history: Smoking status: Patient states was never smoker of tobacco. No barriers to communication noted, The patient speaks fluent Yoruba. - Family history: Not pertinent. - : The pt / caregiver states he / she is not on anticoagulants. Home medication list is obtained from the patient. - Exposure Risk Screening:: None identified. 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 6 in. (167.64 cm) (R); Pain 2/10; 09:13 BP 124 / 67; Pulse 102; Resp 18; Temp 97.1; Pulse Ox 99% ; Pain 2/10; jam1 08:35 Body Mass Index 29.05 (81.65 kg, 167.64 cm) [facility] MDM: 09:00 Wound Culture & GS - All Other Sources Ordered. EDMS 09:07 Dressing ordered. ar2 09:16 Financial registration complete. mm15 09:17 [facility] Payment Agreement was scanned into Adea and attached to record. mm15 Signatures: Dispatcher MedHost EDCA Beatrice Howard RN RN [facility] Jazmin Valencia RN RN dls Robertshaw, Aaron, KRISTYN PABernadine ar2 Odalys Jerez mm15 The chart was reviewed and I authenticate all verbal orders and agree with the evaluation and treatment provided.Attachments: 09:17 [facility] Payment Agreement mm15 Chart Complete MTDD
--- NOTE | 2016-07-06 10:29 | EDDOCDS ---
Nurse's Notes [facility] Name: Estefany Dobbins Age: 30 yrs Sex: Female : 1985 Arrival Date: 07/03/2016 Time: 08:31 Bed I2 / M2 Private MD: Diagnosis: Hidradenitis suppurativa-acute abscess right axilla Presentation: 07/03 08:38 Presenting complaint: Patient states: 6 weeks abscess rt axilla x 3 [facility] days,oozing since yesterday. Adult Sepsis Screening: The patient does not have new or worsening altered mentation. Patient's respiratory rate is less than 22. Systolic blood pressure is greater than 100. Patient has a qSOFA score of 0- Negative Sepsis Screen. Suicide/Homicide risk assessment- the patient denies having any suicidal and/or homicidal ideations and does not present with any other emotional, behavioral or mental health complaints. Status: Patient is not a technical services specialist or dependent. Transition of care: patient was not received from another setting of care. 08:38 Acuity: VENUS Level 3 [facility] 08:38 Method Of Arrival: Walkin/Carried/Asstd [facility] Triage Assessment: 08:41 General: Appears comfortable, well nourished, well groomed, Behavior is appropriate for [facility] age. Pain: Location: right axilla Pain currently is 2 out of 10 on a pain scale. Pt Declines HIV testing. Neurological: Level of Consciousness is awake, alert, Oriented to person, place, time. Respiratory: Airway is patent Respiratory effort is even, unlabored. Derm: Skin is pink, warm & dry. Reports abscess right axilla. 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 metformin 500 mg Oral tab 1 tab 2 times per day (Last dose: 07/02/2016) 2. Vitamin Oral tab 1 tab once daily (Last dose: 07/02/2016) - PMHx: Polycystic Ovary Disease; - PSHx: pilonidal cyst removal; - Social history: Smoking status: Patient states was never smoker of tobacco. No barriers to communication noted, The patient speaks fluent Czech. - Family history: Not pertinent. - : The pt / caregiver states he / she is not on anticoagulants. Home medication list is obtained from the patient. - Exposure Risk Screening:: None identified. Screenin:49 Screening information is obtained from the patient. Primary language is Czech. Fall jam1 risk: No risks identified. Assistance ADL's: requires no assistance with activities of daily living. Abuse/DV Screen: The patient / caregiver reports he/she is: not in a situation that causes fear, pain or injury. Nutritional screening: No deficits noted. Exposure Risk Screening: None identified. Advance Directives: Currently, there is no health care proxy. There is no active DNR order. There is no living will. There is no Power of Documentation Consultant. Advance directive information has not previously been placed in an [facility] medical record. Further advance directive information is declined. home support is adequate. Assessment: 09:16 General: Appears in no apparent distress, well developed, well nourished, well groomed, dls Behavior is cooperative. Awake, alert, oriented. Skin warm and dry. Moves all extremities. Bilateral breath sounds clear. Respirations unlabored. No apparent distress. The patient / caregiver is instructed regarding the plan of care and ED course. Red draining abscess right axilla.. Physical assessment to be completed by TACOS/BASSAM. Vital Signs: 08:35 BP 136 / 84; Pulse 104; Resp 18; Temp 96.7(O); Pulse Ox 100% on R/A; Weight 81.65 kg [facility] (R); Height 5 ft. 6 in. (167.64 cm) (R); Pain 2/10; 09:13 BP 124 / 67; Pulse 102; Resp 18; Temp 97.1; Pulse Ox 99% ; Pain 2/10; jam1 08:35 Body Mass Index 29.05 (81.65 kg, 167.64 cm) [facility] Vitals: 08:35 Log In Time: July 03, 2016 at 08:30. [facility] ED Course: 08:33 Patient visited by Odalys Jerez. mm15 08:33 Patient moved to Waiting mm15 08:39 Triage Initiated [facility] 08:43 Patient moved to / M2 [facility] 08:48 Mukesh Krishnamurthy PA-C is PHCP. ar2 08:48 Casper Jackson MD is Attending Physician. ar2 08:48 Patient visited by Mukesh Krishnamurthy PA-C. ar2 08:49 Pt greeted and oriented to ED. Patient advised of names of staff involved in care, jam1 location of call [place], wait times and NPO status. Patient has correct armband on for positive identification. Bed in low position. Call light in reach. Side rails up X 1. Door closed. 08:59 [facility] is Referral Physician. ar2 09:17 [facility] Payment Agreement was scanned into Kudan and attached to record. mm15 09:18 No IV's were initiated during this patient's visit. No procedures done that require dls assistance. 09:29 Patient name changed from Estefany\S\\S\Dobbins\S\ to Estefany\S\ \S\Dobbins. EDMS Order Results: Lab Order: Wound Culture & GS - All Other Sources; SPEC'M 07/03/16 09:39 Test: GRAM STAIN; Value: GRAM STAIN RESULT; Status: F Test: GRAM STAIN; Value: FEW EPITHELIAL CELLS; Status: F Test: GRAM STAIN; Value: FEW RBCS; Status: F Test: GRAM STAIN; Value: NO ORGANISMS SEEN; Status: F Test: WOUND CULTURE; Value: <EXTERNAL COMMENT eCWMed> FULL REPORT IN LAB NOTES (eCW and Medent).; Status: F Test: WOUND CULTURE; Value: ORGANISM 1: STAPHYLOCOCCUS SP COAG NEG; Status: F Test: WOUND CULTURE; Value: STAPHYLOCOCCUS SP COAG NEG; Status: F Test: WOUND CULTURE; Value: QUANTITY OF GROWTH FEW; Status: F Test: WOUND CULTURE; Value: GRAM POS SENSI - VITEK 67; Status: F Test: WOUND CULTURE; Value: Method: VIT2; Status: F Test: WOUND CULTURE; Value: TETRACYCLINE >=16 R; Status: F Test: WOUND CULTURE; Value: PENICILLIN G <=0.03 R; Status: F Test: WOUND CULTURE; Value: TRIMETHOPRIM/SULFAMETHOXAZOLE <=10 S; Status: F Test: WOUND CULTURE; Value: ERYTHROMYCIN >=8 R; Status: F Test: WOUND CULTURE; Value: GENTAMICIN <=0.5 S; Status: F Test: WOUND CULTURE; Value: CLINDAMYCIN <=0.25 S; Status: F Test: WOUND CULTURE; Value: OXACILLIN <=0.25 S; Status: F Test: WOUND CULTURE; Value: VANCOMYCIN 1 S; Status: F Test: WOUND CULTURE; Value: LINEZOLID (ZYVOX) 1 S; Status: F Outcome: 09:00 Discharge ordered by Provider. ar2 09:17 The following High Risk Discharge criteria are identified: None. Discharged to home dls ambulatory. Condition: stable. Discharge instructions given to patient, Instructed on discharge instructions, follow up and referral plans. medication usage, Demonstrated understanding of instructions, medications, Pt was receptive of discharge instructions/ teaching. No special radiology studies were completed. 09:18 Discharge Assessment: Patient awake, alert and oriented x 3. No cognitive and/or dls functional deficits noted. Patient verbalized understanding of disposition instructions. patient administered narcotics - no. Property sent home with patient. 09:20 Patient left the ED. dls Addendum: 07/06/2016 10:17 Narrative: Wound culture results reviewed with Dr. Knox and report to be faxed to [facility] PCP. Signatures: Dispatcher [employer] Carisa Thomas, RN RN [facility] Beatrice Howard RN RN Jazmin Weaver RN RN dls Chanda Chaney, HEALTH INFORMATION TECHNICIAN HEALTH INFORMATION TECHNICIAN jam1 Mukesh Krishnamurthy PA-C PA-C ar2 Odalys Jerez mm15 Chart Complete MTDD
--- NOTE | 2016-07-06 10:29 | EDDOCDS ---
Physician Documentation [facility] Name: Estefany Dobbins Age: 30 yrs Sex: Female : 1985 Arrival Date: 07/03/2016 Time: 08:31 Bed I2 / M2 Private MD: Disposition: 07/03/16 09:00 Discharged to Home/Self Care. Impression: Hidradenitis suppurativa - acute abscess right axilla. - Condition is Stable. - Discharge Instructions: Abscess, Hidradenitis Suppurativa, Heat Therapy. - Prescriptions for Keflex 500 mg Oral Capsule - take 1 capsule by ORAL route every 6 hours for 10 days; 40 capsule. - Medication Reconciliation, Local Pharmacy Hours form. - Follow up: Emergency Department; When: As needed; Reason: Fever > 102F, Worsening of conditions. Follow up: [facility]; When: 1 - 2 days; Reason: Recheck today's complaints. - Problem is an acute exacerbation. - Symptoms have improved. Historical: - Allergies: No known drug Allergies; - Home Meds: 1. metformin 500 mg Oral tab 1 tab 2 times per day (Last dose: 07/02/2016) 2. Vitamin Oral tab 1 tab once daily (Last dose: 07/02/2016) - PMHx: Polycystic Ovary Disease; - PSHx: pilonidal cyst removal; - Social history: Smoking status: Patient states was never smoker of tobacco. No barriers to communication noted, The patient speaks fluent Romansh. - Family history: Not pertinent. - : The pt / caregiver states he / she is not on anticoagulants. Home medication list is obtained from the patient. - Exposure Risk Screening:: None identified. 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 6 in. (167.64 cm) (R); Pain 2/10; 09:13 BP 124 / 67; Pulse 102; Resp 18; Temp 97.1; Pulse Ox 99% ; Pain 2/10; jam1 08:35 Body Mass Index 29.05 (81.65 kg, 167.64 cm) [facility] MDM: 09:00 Wound Culture & GS - All Other Sources Ordered. EDMS 09:07 Dressing ordered. ar2 09:16 Financial registration complete. mm15 09:17 [facility] Payment Agreement was scanned into All[employer] and attached to record. mm15 Signatures: Dispatcher MedHost EDNY Beatrice Howard RN RN [facility] Jazmin Valencia RN RN dls Robertshaw, Aaron, KRISTYN PABernadine ar2 Odalys Jerez mm15 The chart was reviewed and I authenticate all verbal orders and agree with the evaluation and treatment provided.Attachments: 09:17 [facility] Payment Agreement mm15 Chart Complete MTDD
--- NOTE | 2016-07-06 10:29 | EDDOCDS ---
Physician Documentation [facility] Name: Estefany Dobbins Age: 30 yrs Sex: Female : 1985 Arrival Date: 07/03/2016 Time: 08:31 Bed I2 / M2 Private MD: Disposition: 07/03/16 09:00 Discharged to Home/Self Care. Impression: Hidradenitis suppurativa - acute abscess right axilla. - Condition is Stable. - Discharge Instructions: Abscess, Hidradenitis Suppurativa, Heat Therapy. - Prescriptions for Keflex 500 mg Oral Capsule - take 1 capsule by ORAL route every 6 hours for 10 days; 40 capsule. - Medication Reconciliation, Local Pharmacy Hours form. - Follow up: Emergency Department; When: As needed; Reason: Fever > 102F, Worsening of conditions. Follow up: [facility]; When: 1 - 2 days; Reason: Recheck today's complaints. - Problem is an acute exacerbation. - Symptoms have improved. Historical: - Allergies: No known drug Allergies; - Home Meds: 1. metformin 500 mg Oral tab 1 tab 2 times per day (Last dose: 07/02/2016) 2. Vitamin Oral tab 1 tab once daily (Last dose: 07/02/2016) - PMHx: Polycystic Ovary Disease; - PSHx: pilonidal cyst removal; - Social history: Smoking status: Patient states was never smoker of tobacco. No barriers to communication noted, The patient speaks fluent Nepali. - Family history: Not pertinent. - : The pt / caregiver states he / she is not on anticoagulants. Home medication list is obtained from the patient. - Exposure Risk Screening:: None identified. 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 6 in. (167.64 cm) (R); Pain 2/10; 09:13 BP 124 / 67; Pulse 102; Resp 18; Temp 97.1; Pulse Ox 99% ; Pain 2/10; jam1 08:35 Body Mass Index 29.05 (81.65 kg, 167.64 cm) [facility] MDM: 09:00 Wound Culture & GS - All Other Sources Ordered. EDMS 09:07 Dressing ordered. ar2 09:16 Financial registration complete. mm15 09:17 [facility] Payment Agreement was scanned into Yur[employer] and attached to record. mm15 Signatures: Dispatcher MedHost EDIN Beatrice Howard RN RN [facility] Jazmin Valencia RN RN dls Robertshaw, Aaron, KRISTYN PABernadine ar2 Odalys Jerez mm15 The chart was reviewed and I authenticate all verbal orders and agree with the evaluation and treatment provided.Attachments: 09:17 [facility] Payment Agreement mm15 Chart Complete MTDD
== END 2016-07-03 09:20 | disposition home or self-care (01) ==
LOC: M ED 08:31
DX: O99.711 Diseases of the skin and subcutaneous tissue complicating pregnancy, first trimester (principal); L02.411 Cutaneous abscess of right axilla; O26.891 Other specified pregnancy related conditions, first trimester; L73.2 Hidradenitis suppurativa; O99.281 Endocrine, nutritional and metabolic diseases complicating pregnancy, first trimester; E28.2 Polycystic ovarian syndrome; Z79.899 Other long term (current) drug therapy; Z3A.01 Less than 8 weeks gestation of pregnancy

== ENCOUNTER → 2016-09-07 | Outpatient (REF) | payer OTHER | LOC: M LAB REF 14:32 | PROVIDERS: ATTEND Physician Assistant Medical | DX: R31.29 Other microscopic hematuria (principal) ==

== ENCOUNTER → 2017-04-24 | Outpatient (CLI) | payer BC, OTHER ==
--- NOTE | 2017-04-25 18:41 | REP ---
MRI lumbar spine without contrast: History: Low back pain with shooting pains down the right leg. Numbness in the right foot. No comparison lumbar spine imaging. Spondylolisthesis. Technique: Sagittal and axial T1 and T2-weighted scans are acquired in the usual fashion with and without fat saturation. Sequences include spin echo, turbo spin-echo, and STIR imaging sequences. MRI findings: Lumbar vertebral body heights are preserved. Alignment is normal. There is no evidence of spondylolisthesis or spondylolysis. Conus medullaris is normal in position and appearance at the L1 level. No extra-vertebral abnormality is observed. At L4-5, there is degenerative narrowing of the intervertebral disc with reactive marrow changes on either side of the 4-5 level consistent with established degenerative disc disease here. There is a large right posterior disc herniation with caudal extrusion compressing the thecal sac. The disc herniation extends caudally adjacent to the posterior aspect of the L5 vertebral body almost to the L5-S1 disc. This disc protrusion measures 2.5 cm in craniocaudal span by 1.1 cm anterior to posterior by 1.5 cm medial to lateral. There is significant thecal sac compression. The disc protrusion extends into the lateral recess at L5 on the right side. There is mild facet hypertrophy bilaterally at L4-5. The foraminal segment of the disc bulges on the right, but no significant nerve root compression is seen here. S1 is compressed on the right in the lateral recess. At L5-S1, there is facet hypertrophy bilaterally. No disc protrusion is seen. No bony neural foraminal narrowing. The L3-4 disc level shows minimal facet hypertrophy. No other significant finding. 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 There is a large right paracentral disc herniation with caudal extrusion at L4-5 producing severe thecal sac compression. The right L5 lateral recess is obscured by the disc extrusion. Signed by Randy Chatterjee MD 04/26/2017 08:04 A
== END ==
LOC: M RAD 17:48
PROVIDERS: ATTEND Physician Assistant
DX: M43.16 Spondylolisthesis, lumbar region (principal); M51.36 Other intervertebral disc degeneration, lumbar region

== ENCOUNTER 2017-07-02 08:38 | Day surgery (SDC) | payer BC, OTHER ==
[2017-07-02] MEDS: METAMUCIL (PSYLLIUM) PACKET PO (09:00)
[2017-07-02 09:04] LABS: CONTROL LINE UCG INT CTR LINE PRESENT; URINE PREG TEST NEGATIVE (NEGATIVE)
[2017-07-02 09:19] LABS: HEMOGLOBIN 13.9 g/dl (12.0-16.0)
[2017-07-02] MEDS ORDERED: dexameTHASONE 4 MG/ML 1ML VIAL (J1100) As Ordered (09:30)
[2017-07-02] MEDS ORDERED: ONDANSETRON 4MG/2ML VIAL (J2405) As Ordered (09:30)
[2017-07-02] MEDS ORDERED: MIDAZOLAM INJ 2 MG/2 ML VIAL (J2250) As Ordered (09:30)
[2017-07-02] MEDS ORDERED: fentaNYL 250 MCG/5 ML INJECTION (J3010) As Ordered (09:30)
[2017-07-02] MEDS ORDERED: ROCURONIUM BROMIDE 50 MG/5 ML VIAL As Ordered (09:30)
[2017-07-02] MEDS ORDERED: LIDOCAINE 2% INJ 100 MG/5 ML SDV (FOR ANES.) As Ordered (09:30)
[2017-07-02] MEDS ORDERED: PROPOFOL 200 MG/20 ML VIAL As Ordered (09:30)
[2017-07-02] MEDS: LIDOCAINE W/EPINEPHRINE 1% 20ML VIAL As Ordered (12:24)
[2017-07-02] MEDS ORDERED: NEOSTIGMINE 10 MG/10 ML VIAL (J2710) As Ordered (13:00)
[2017-07-02] MEDS ORDERED: HYDROmorphone HCL 2 MG/ML 1ML VIAL (J1170) As Ordered (13:00)
[2017-07-02] MEDS ORDERED: GLYCOPYRROLATE INJ 0.2 MG/ML 2 ML VIAL As Ordered (13:00)
[2017-07-02] MEDS: THROMBIN SOLN 20,000 UNITS KIT As Ordered (13:07)
[2017-07-02] MEDS: BACITRACIN PWD 50,000 UNITS VIAL As Ordered (13:07)
[2017-07-02] MEDS: CelecoXIB 400 MG CAP PO (13:11)
[2017-07-02] MEDS: LR 1,000 ML IV ×2 (13:11→14:15)
[2017-07-02] MEDS: PERCOCET 5MG/325MG TAB PO (13:11)
[2017-07-02] MEDS: BUPIVACAINE HCL 0.25% 10 ML VIAL As Ordered (13:36)
[2017-07-02] MEDS: BUPIVACAINE LIPOSOME/PF 1.3% 20 ML VIAL (13.3MG/ML)(EXPAREL) As Ordered (13:36)
[2017-07-02] MEDS ORDERED: HYDROmorphone HCL 1 MG/ML SYRINGE (J1170) IV ×2 (14:00)
[2017-07-02] MEDS ORDERED: fentaNYL 100 MCG/2 ML INJECTION (J3010) IV (14:15)
[2017-07-02] MEDS ORDERED: PERCOCET 5MG/325MG TAB PO (14:15)
[2017-07-02] MEDS ORDERED: MEPERIDINE INJ 25 MG/ML VIAL (J2175) IV (14:15)
[2017-07-02] MEDS ORDERED: ONDANSETRON 4MG/2ML VIAL (J2405) IV (14:15)
[2017-07-02] MEDS: D5W/LR 1,000 ML IV (16:20)
[2017-07-02] MEDS: PROMETHAZINE INJ 25 MG/ML VIAL (J2550) IV (19:34)
[2017-07-03] MEDS: PERCOCET 5MG/325MG TAB PO ×3 (00:03→10:19)
[2017-07-03] MEDS: CelecoXIB (CeleBREX) 100 MG CAP PO ×2 (08:47→08:50)
[2017-07-03] MEDS: METAMUCIL (PSYLLIUM) PACKET PO (08:47)
[2017-07-03] MEDS: D5W/LR 1,000 ML IV ×2 (08:47)
== END 2017-07-03 10:45 | disposition home or self-care (01) ==
LOC: M SDC 08:38 → M PED 14:46
DX: M51.26 Other intervertebral disc displacement, lumbar region (principal); M54.16 Radiculopathy, lumbar region; M47.816 Spondylosis without myelopathy or radiculopathy, lumbar region; N28.89 Other specified disorders of kidney and ureter; R31.9 Hematuria, unspecified
CPT/HCPCS: 63030

== ENCOUNTER → 2019-03-03 | Outpatient (CLI) | payer OTHER, BC ==
[2019-03-03 12:42] LABS: BASO % 0.4 % (0.0-1.0); EOS % 0.4 % (0.0-3.0); HEMATOCRIT 39.9 % (36.0-47.0); HEMOGLOBIN 13.3 g/dl (12.0-15.5); LYMPH # 0.6 10^3/uL (1.5-5.0); MEAN CORPUSCULAR HEMOGLOBIN 30.9 pg (27.0-33.0); MEAN CORPUSCULAR HGB CONC 33.3 g/dl (32.0-36.5); MEAN CORPUSCULAR VOLUME 92.8 fl (80.0-96.0); MONO # 0.5 10^3/uL (0.0-0.8); MONO % 10.9 % (0.0-5.0); NEUTROPHILS # 3.6 10^3/uL (1.5-8.5); NEUTROPHILS % 76.1 % (36.0-66.0); PLATELET COUNT, AUTOMATED 151 10^3/uL (150-450); WHITE BLOOD COUNT 4.8 10^3/uL (4.0-10.0)
[2019-03-03 12:45] LABS: BLOOD UREA NITROGEN 14 MG/DL (7-18); CALCIUM LEVEL 9.1 MG/DL (8.5-10.1); CARBON DIOXIDE LEVEL 31 MEQ/L (21-32); CHLORIDE LEVEL 106 MEQ/L (98-107); CREATININE FOR GFR 0.71 MG/DL (0.55-1.30); GLOMERULAR FILTRATION RATE > 60.0 (>60); GLUCOSE, FASTING 108 MG/DL (70-100); SODIUM LEVEL 140 MEQ/L (136-145)
== END ==
LOC: M WUC 09:00
PROVIDERS: ATTEND Physician Assistant
DX: R50.9 Fever, unspecified (principal)

== ENCOUNTER → 2019-06-27 | Outpatient (REF) | payer OTHER | LOC: M LAB REF 12:42 | PROVIDERS: ATTEND Physician Assistant | DX: N39.0 Urinary tract infection, site not specified (principal) ==

== ENCOUNTER → 2020-10-20 | Outpatient (REF) | payer OTHER | LOC: M LAB REF 19:55 | PROVIDERS: ATTEND Physician Assistant | DX: L02.11 Cutaneous abscess of neck (principal) ==